=== PATIENT | female | born 1935 | race Caucasian/White ===

== ENCOUNTER 2017-09-22 14:35 | Emergency (ER) | payer MEDICARE, BC ==
[2017-09-22 14:35] VITALS: BMI 28.1
[2017-09-22 14:41] VITALS: PULSE 74; O2SAT 97
[2017-09-22] MEDS ORDERED: Sodium Chloride 0.9% 1,000 ML IV STA (15:27)
--- NOTE | 2017-09-22 15:46 | ED PDOC ---
HPI: Back Time Seen by Provider: 09/22/17 15:00 Chief Complaint (Nursing): Back Pain Chief Complaint (Provider): Back Pain History Per: Patient History/Exam Limitations: no limitations Additional Complaint(s): Patient is a 82 y/o female with history of hypertension, who presents to the ED complaining of left lower back pain. Patient reports she initially had dysuria x4 days ago but those symptoms have resolved and since then she has developed left lower back pain with radiation to left abdomen. Patient describes the pain as constant and states she took Aleve x2 ours ago with no relief. She denies fever, nausea, vomiting, diarrhea, constipation, or dysuria. Past Medical History Reviewed: Historical Data, Nursing Documentation, Vital Signs Vital Signs: Last Vital Signs Temp 98.0 F 09/22/17 14:39 Pulse 74 09/22/17 14:39 Resp 16 09/22/17 14:39 BP 132/65 09/22/17 14:39 Pulse Ox 97 09/22/17 14:39 - Medical History PMH: Depression, HTN Denies: Chronic Kidney Disease - Surgical History Surgical History: Appendectomy (1953) - Family History Family History: States: Unknown Family Hx - Social History Current smoker - smoking cessation education provided: No Alcohol: None - Home Medications Home Medications: Ambulatory Orders Medication Instructions Recorded Escitalopram [Lexapro] 5 mg PO DAILY 07/25/14 Nebivolol HCl [Bystolic] 10 mg PO DAILY 07/25/14 Torsemide 1 tab PO DAILY 07/25/14 Nitrofurantoin Macrocrystals 100 mg PO BID #14 cap 09/22/17 [Macrobid] Phenazopyridine [Pyridium] 200 mg PO TID PRN #6 tab 09/22/17 - Allergies Allergies/Adverse Reactions: Allergies Allergy/AdvReac Type Severity Reaction Status Date / Time calamari AdvReac DIARRHEA Uncoded 09/22/17 14:42 Review of Systems ROS Statement: Except As Marked, All Systems Reviewed And Found Negative Constitutional: Negative for: Fever Gastrointestinal: Positive for: Abdominal Pain. Negative for: Nausea, Vomiting , Diarrhea, Constipation Genitourinary Female: Negative for: Dysuria Musculoskeletal: Positive for: Back Pain Physical Exam - Reviewed Nursing Documentation Reviewed: Yes Vital Signs Reviewed: Yes - Physical Exam Appears: Positive for: In Acute Distress (mild painful distress) Head Exam: Positive for: ATRAUMATIC, NORMOCEPHALIC Skin: Positive for: Normal Color, Warm, Dry Eye Exam: Positive for: EOMI, Normal appearance, PERRL Neck: Positive for: Normal, Painless ROM, Supple Cardiovascular/Chest: Positive for: Regular Rate, Rhythm. Negative for: Murmur Respiratory: Positive for: Normal Breath Sounds. Negative for: Respiratory Distress Gastrointestinal/Abdominal: Negative for: Tenderness Back: Positive for: L CVA Tenderness Extremity: Positive for: Normal ROM. Negative for: Pedal Edema, Deformity Neurologic/Psych: Positive for: Alert, Oriented. Negative for: Motor/Sensory Deficits - Laboratory Results Result Diagrams: 09/22/17 15:48 09/22/17 15:48 - ECG O2 Sat by Pulse Oximetry: 97 (RA) Pulse Ox Interpretation: Normal Medical Decision Making Medical Decision Making: Time: 15:27 Impression: Left lower back pain Initial Plan: --CT Abd&Pelvis 2 w/o contrast --EKG --CMP --CBC w/ diff --PTT --Prothrombin time --NaCl IV 125 mls/hr --Tylenol 650 mg PO --Urinalysis Accession No. : [id number] Patient Name / ID : HITESH FOWLER I / [id number] Exam Date : 09/22/2017 15:50:13 ( Approved ) Study Comment : Sex / Age : F / 82Y Creator : Brenden Da Silva MD Dictator : Brenden Da Silva MD Hand Filer Balance Wheel : Personal Fitness Trainer : Brenden Da Silva MD Approver2 : Report Date : 09/22/2017 16:10:05 My Comment : Date of service: 09/22/2017 PROCEDURE: CT Abdomen and Pelvis without intravenous contrast HISTORY: Left flank pain. COMPARISON: None TECHNIQUE: Unenhanced study. Neither oral nor intravenous contrast administered. Radiation dose: Total exam DLP = 763.76 mGy-cm. This CT exam was performed using one or more of the following dose reduction techniques: Automated exposure control, adjustment of the mA and/or kV according to patient size, and/or use of iterative reconstruction technique. FINDINGS: LOWER THORAX: Unremarkable. LIVER: Unremarkable. No gross lesion or ductal dilatation. GALLBLADDER AND BILE DUCTS: UnremarkableDistended gallbladder. Sludge identified. The may be noncalcified gallstones identified. Pacs go the. PANCREAS: Unremarkable. No gross lesion or ductal dilatation. SPLEEN: Unremarkable. ADRENALS: Unremarkable. No mass. KIDNEYS AND URETERS: Unremarkable. No hydronephrosis. No solid mass. VASCULATURE: Unremarkable. No aortic aneurysm. BOWEL: Constipation without fecal impaction or obstruction. Diverticulosis without an acute inflammatory component or other associated pathologic process. APPENDIX: No abnormalities to suggest acute appendicitis. No right lower quadrant inflammatory processes identified. PERITONEUM: Unremarkable. No free fluid. No free air. LYMPH NODES: Unremarkable. No enlarged lymph nodes. BLADDER: Unremarkable. REPRODUCTIVE: Unremarkable. BONES: No acute fracture. T12 compression deformity noted. This is seen on a prior CT scan of the thorax 09/23/2013. OTHER FINDINGS: None. IMPRESSION: No acute findings related to/accounting for the clinical presentation. Additional benign and/or incidental findings described above. ----- Scribe Attestation: Documented by Severo Huggins, acting as a scribe for Audrey Matias MD. Provider Scribe Attestation: All medical record entries made by the Scribe were at my direction and personally dictated by me. I have reviewed the chart and agree that the record accurately reflects my personal performance of the history, physical exam, medical decision making, and the department course for this patient. I have also personally directed, reviewed, and agree with the discharge instructions and disposition. Disposition - Clinical Impression Clinical Impression: UTI (urinary tract infection), Ovarian cyst - Patient ED Disposition Is Patient to be Admitted: No - Disposition Referrals: [facility] [Outside] Disposition: Routine/Home Disposition Time: 17:06 Condition: STABLE Prescriptions: Nitrofurantoin Macrocrystals [Macrobid] 100 mg PO BID #14 cap Phenazopyridine [Pyridium] 200 mg PO TID PRN #6 tab PRN Reason: Bladder Spasm Instructions: Urinary Tract Infections in Adults, Ovarian Cysts Forms: [employer] (Slovenian)
[2017-09-22 16:02] LABS: BASO % 0.3 % (0.0-2.0); EOS # 0.1 K/uL (0.0-0.7); EOS % 2.1 % (0.0-4.0); HEMOGLOBIN 12.9 g/dL (12.0-16.0); LYMPH # 1.4 K/uL (1.0-4.3); LYMPH % 22.5 % (20.0-40.0); MEAN CELL VOLUME 88.7 fl (81.0-99.0); MEAN CORPUSCULAR HEMOGLOBIN 30.6 pg (27.0-31.0); MEAN CORPUSCULAR HGB CONC 34.5 g/dL (33.0-37.0); MEAN PLATELET VOLUME 8.9 fl (7.2-11.7); MONO # 0.5 K/uL (0.0-0.8); NEUT # 4.3 K/uL (1.8-7.0); NEUT % 67.1 % (50.0-75.0); RBC 4.21 Mil/uL (3.80-5.20); RED CELL DISTRIBUTION WIDTH 14.2 % (11.5-14.5); WHITE BLOOD COUNT 6.3 K/uL (4.8-10.8)
[2017-09-22 16:03] LABS: PROTHROMBIN TIME 11.5 Seconds (9.8-13.1)
[2017-09-22 16:06] LABS: PARTIAL THROMBOPLASTIN TIME 31.5 Seconds (25.6-37.1)
[2017-09-22 16:08] LABS: ALB/GLOB RATIO 1.3 (1.0-2.1); ALBUMIN 3.6 g/dL (3.5-5.0); ALT/SGPT 29 U/L (9-52); AST/SGOT 20 U/L (14-36); BLOOD UREA NITROGEN 25 mg/dl (7-17); GFR AFRICAN-AMERICAN > 60; GFR NON-AFRICAN AMERICAN > 60
--- NOTE | 2017-09-22 16:11 | CT ---
Date of service: 09/22/2017 PROCEDURE: CT Abdomen and Pelvis without intravenous contrast HISTORY: Left flank pain. COMPARISON: None TECHNIQUE: Unenhanced study. Neither oral nor intravenous contrast administered. Radiation dose: Total exam DLP = 763.76 mGy-cm. This CT exam was performed using one or more of the following dose reduction techniques: Automated exposure control, adjustment of the mA and/or kV according to patient size, and/or use of iterative reconstruction technique. FINDINGS: LOWER THORAX: Unremarkable. LIVER: Unremarkable. No gross lesion or ductal dilatation. GALLBLADDER AND BILE DUCTS: UnremarkableDistended gallbladder. Sludge identified. The may be noncalcified gallstones identified. Pacs go the. PANCREAS: Unremarkable. No gross lesion or ductal dilatation. SPLEEN: Unremarkable. ADRENALS: Unremarkable. No mass. KIDNEYS AND URETERS: Unremarkable. No hydronephrosis. No solid mass. VASCULATURE: Unremarkable. No aortic aneurysm. BOWEL: Constipation without fecal impaction or obstruction. Diverticulosis without an acute inflammatory component or other associated pathologic process. APPENDIX: No abnormalities to suggest acute appendicitis. No right lower quadrant inflammatory processes identified. PERITONEUM: Unremarkable. No free fluid. No free air. LYMPH NODES: Unremarkable. No enlarged lymph nodes. BLADDER: Unremarkable. REPRODUCTIVE: Unremarkable. BONES: No acute fracture. T12 compression deformity noted. This is seen on a prior CT scan of the thorax 09/23/2013. OTHER FINDINGS: None. IMPRESSION: No acute findings related to/accounting for the clinical presentation. Additional benign and/or incidental findings described above.
[2017-09-22 16:22] LABS: SQUAMOUS EPITHIAL 1 /hpf (0-5); URINE BACTERIA RARE (<OCC); URINE BILIRUBIN NEGATIVE (NEGATIVE); URINE BLOOD NEGATIVE (NEGATIVE); URINE CLARITY CLOUDY (Clear); URINE COLOR YELLOW (YELLOW); URINE GLUCOSE (UA) NEG (Normal); URINE LEUKOCYTE ESTERASE SMALL Leu/uL (Negative); URINE PROTEIN 30 mg/dL (NEGATIVE); URINE UROBILINOGEN 0.2-1.0 mg/dL (0.2-1.0)
[2017-09-22] MEDS ORDERED: cefTRIAXone (Rocephin) 1 gm Inj ONE (17:06)
[2017-09-22 17:14] VITALS: BP 154/72; RESP 18; TEMP 97.9
--- NOTE | 2017-09-23 08:28 | CARD ---
APPROVED REPORT Date of service: 09/22/2017 <Conclusion> Sinus rhythm with marked sinus arrhythmia Nonspecific ST and T wave abnormality Abnormal ECG
== END 2017-09-22 17:49 | disposition home or self-care (01) ==
LOC: H.ER 14:35
DX: N39.0 Urinary tract infection, site not specified (principal); I10 Essential (primary) hypertension; N83.209 Unspecified ovarian cyst, unspecified side; Z86.59 Personal history of other mental and behavioral disorders
CPT/HCPCS: 74176; 80053; 81003; 85025; 85610; 85730; 87086; 93005; 96361; 96365; 99283; J0696; J7030